=== PATIENT | female | born 1955 | race Caucasian/White ===

== ENCOUNTER 2024-05-04 23:11 | Inpatient (IN) | payer MEDICARE, MEDICAID ==
[~2024-05-04] VITALS: Ht 157.5 cm; Wt 47.7 kg
[2024-05-04] MEDS ORDERED: LEVO150T8 PO (23:27)
[2024-05-04] MEDS ORDERED: LISI40TA13 PO (23:27)
[2024-05-04] MEDS ORDERED: CYAN100T47 PO (23:27)
[2024-05-04] MEDS ORDERED: PANT-47 PO (23:27)
[2024-05-04] MEDS ORDERED: KEN0.1O TOP (23:27)
[2024-05-04] MEDS ORDERED: ONDA-243 PO (23:27)
[2024-05-04] MEDS ORDERED: METO50TA16 PO (23:27)
[2024-05-04] MEDS ORDERED: TRAZ-251 PO (23:27)
[2024-05-04] MEDS ORDERED: THIA50TA10 PO (23:27)
[2024-05-04] MEDS ORDERED: MECL-231 PO (23:27)
[2024-05-05 00:46] LABS: BASOPHILS % (AUTO) 1.4 % (0-1); EOSINOPHILS # (AUTO) 0.1 X10'3 (0-0.9); EOSINOPHILS % (AUTO) 2.1 % (0-6); HEMATOCRIT 24.7 % (35.0-45.0); HEMOGLOBIN 8.1 g/dl (12.0-16.0); LYMPHOCYTES # (AUTO) 0.9 X10'3 (1.1-4.8); LYMPHOCYTES % (AUTO) 31.1 % (21-51); MEAN CORPUSCULAR HEMOGLOBIN 34.3 PG (27.0-31.0); MEAN CORPUSCULAR VOLUME 104.1 FL (78-98); MEAN PLATELET VOLUME 7.2 FL (7.4-10.4); MONOCYTES # (AUTO) 0.2 X10'3 (0-0.9); MONOCYTES % (AUTO) 6.2 % (2-12); NEUTROPHILS # (AUTO) 1.7 X10'3 (1.8-7.7); NEUTROPHILS % (AUTO) 59.2 % (42-75); PLATELET COUNT 156 X10'3 (140-440); RED BLOOD COUNT 2.37 X10'6 (4.20-5.60); RED CELL DISTRIBUTION WIDTH 17.2 % (11.5-14.5); WHITE BLOOD COUNT 2.9 X10'3 (4.5-11.0)
[2024-05-05] MEDS: normal saline 1000ml 1,000 ML IV ONE (00:48)
[2024-05-05 00:49] LABS: ALBUMIN 3.4 G/DL (3.4-5.0); ANION GAP 22 (8-16); BLOOD UREA NITROGEN 21 MG/DL (7-18); BUN/CREATININE RATIO 16.3 (10.0-20.0); CALCIUM 8.6 MG/DL (8.5-10.1); CHLORIDE 92 MMOL/L (99-107); CREATININE 1.29 MG/DL (0.40-0.90); GLUCOSE 92 MG/DL (70-104); LIPASE 188 U/L (16-77); SODIUM 131 MMOL/L (135-145); TOTAL CARBON DIOXIDE 16.7 MMOL/L (24-32); eCRCL 31 ML/MIN; eGFR 41 ML/MIN
[2024-05-05 00:59] LABS: ABG BASE EXCESS -7.9 mmol/L (-2.0-2.0); ABG HCO3 14.9 mmol/L (22.0-26.0); ABG OXYGEN SATURATION 95.3 % (92-98.5); ABG PCO2 (T) 21.3 mmHg (32.0-45.0); ABG PH (T) 7.462 (7.350-7.450); ABG PO2 (T) 82.1 mmHg (75.0-100.0); ALLEN'S TEST POSITIVE; FCOHb 0.3 % (0.5-1.5); FHHb 4.7 % (0.0-5.0); FMetHb 0.5 % (0.0-1.5); FO2Hb 94.5 % (94-97); MODE ROOM AIR; PATIENT TEMPERATURE 36.9; TOTAL HEMOGLOBIN 7.6 G/dl (12.0-16.0)
[2024-05-05 01:15] LABS: ANISOCYTOSIS 1+; FREE T4 (FREE THYROXINE) 0.37 NG/DL (0.73-1.40); PLATELET ESTIMATE NORMAL; TOTAL CELLS COUNTED 100
[2024-05-05 01:16] LABS: HYPOCHROMASIA 1+
[2024-05-05 01:17] LABS: TARGET CELLS FEW; TEAR DROP CELLS FEW
[2024-05-05 01:18] LABS: THYROID STIMULATING HORMONE 55.99 ulU/ml (0.34-4.50)
[2024-05-05] MEDS ORDERED: magnesium sulf-water 4G/100mL 100 ML IV PRN (02:20)
[2024-05-05] MEDS ORDERED: potassium Cl 20 mEq SR tablet PO PRN (02:20)
[2024-05-05] MEDS ORDERED: magnesium sulf-water 2g/50mL 50 ML IV PRN (02:20)
[2024-05-05] MEDS ORDERED: potassium Cl 40MEQ/1/2NS 520ml 520 ML IV PRN (02:20)
[2024-05-05] MEDS ORDERED: magnesium hydroxide 30ml (MOM) UD suspension PO PRN (02:20)
[2024-05-05] MEDS ORDERED: mag hydrox/Alum hydrox/simeth 30ml oral suspension PO PRN (02:20)
[2024-05-05 02:42] LABS: HEMOGLOBIN A1C 4.4 % (4.5-6.2)
[2024-05-05 03:03] LABS: BILIRUBIN,URINE NEGATIVE (Neg); CLARITY,URINE SLIGHTLY CLOUDY (Clear); COLOR,URINE YELLOW (Yellow); GLUCOSE, URINE NEGATIVE (Neg); KETONES,URINE 15 mg/dl (Neg); LEUKOCYTE ESTERASE ,URINE SMALL (Neg); NITRITES, URINE POSITIVE (Neg); OCCULT BLOOD,URINE TRACE-INTACT (Neg); PROTEIN,URINE 30 mg/dl (Neg); UROBILINOGEN,URINE 0.2 E.U/dL (0.2-1.0)
[2024-05-05 03:08] LABS: UA COLLECTION TYPE FOLEY CATH
[2024-05-05 03:10] LABS: BACTERIA,URINE FEW /HPF (Neg); HYALINE CASTS 0-3 /LPF (NEGATIVE); SQUAMOUS EPITHELIAL CELL,UR FEW /LPF (FEW)
[2024-05-05 03:11] LABS: WBC CLUMPS,URINE FEW /HPF (NEGATIVE)
[2024-05-05 03:17] LABS: URINE AMPHETAMINE SCREEN NEGATIVE (Neg); URINE BARBITUATE SCREEN NEGATIVE (Neg); URINE BENZODIAZEPINES SCREEN NEGATIVE (Neg); URINE CANNABINOID SCREEN NEGATIVE (Neg); URINE COCAINE SCREEN NEGATIVE (Neg); URINE METHADONE SCREEN NEGATIVE (Neg); URINE OPIATE SCREEN NEGATIVE (Neg); URINE PHENCYCLIDINE SCREEN NEGATIVE (Neg)
[2024-05-05 03:50] LABS: PRO BRAIN NATRIURETIC PEPTIDE 376 PG/ML (0-125)
[2024-05-05] MEDS: normal saline 1000ml 1,000 ML IV SCH (04:13)
[2024-05-05 07:23] LABS: CHOL/HDL RATIO 1.9 (0.00-4.99); CHOLESTEROL 186 MG/DL (0-200); HDL CHOLESTEROL 96 MG/DL (35-60); LDL CHOLESTEROL 24 MG/DL (50-100); POTASSIUM 4.2 MMOL/L (3.5-5.1); TRIGLYCERIDES 83 MG/DL (20-135)
[2024-05-05] MEDS: K and/or MAG REPLACEMENT MC SCH (07:32)
[2024-05-05] MEDS: heparin, porcine 5000 units/ml vial SQ SCH (08:00)
[2024-05-05] MEDS: docusate sod 100mg capsule PO SCH (09:05)
[2024-05-05] MEDS: CefTRIAXone/D5W-Rocephin 1gm 50 ML IV SCH (09:05)
[2024-05-05] MEDS: pneumococcal 23-VAL P-sac vacc 25 mcg/0.5ml vial IMVAC ONE (12:28)
[2024-05-05 14:30] VITALS: BP 106/74; PULSE 81; RESP 12; TEMP 97.8; O2SAT 95
[2024-05-05 15:00] VITALS: RESP 12; O2SAT 95
[2024-05-05 18:00] VITALS: BP 113/78; PULSE 87; RESP 21; TEMP 98.3; O2SAT 95
[2024-05-05 20:00] VITALS: RESP 12; O2SAT 95
[2024-05-05] MEDS: ondansetron/PF 4mg/2ml inj IV PRN (20:45)
[2024-05-05] MEDS: traZODone 50mg tablet PO SCH (20:46)
[2024-05-05 22:00] VITALS: BP 107/65; PULSE 88; RESP 17; TEMP 97.2; O2SAT 96
[2024-05-06] VITALS (10 sets, daily range): BP systolic 91–125; BP diastolic 59–84; PULSE 73–97; RESP 12–17; TEMP 97.3–98.6; O2SAT 93–99
[2024-05-06 05:51] LABS: BASOPHILS % (AUTO) 1.3 % (0-1); EOSINOPHILS # (AUTO) 0.1 X10'3 (0-0.9); EOSINOPHILS % (AUTO) 2.5 % (0-6); LYMPHOCYTES # (AUTO) 0.7 X10'3 (1.1-4.8); LYMPHOCYTES % (AUTO) 27.5 % (21-51); MEAN CORPUSCULAR HEMOGLOBIN 35.1 PG (27.0-31.0); MEAN CORPUSCULAR HGB CONC 33.8 g/dL (33.0-36.5); MEAN CORPUSCULAR VOLUME 103.9 FL (78-98); MEAN PLATELET VOLUME 6.6 FL (7.4-10.4); MONOCYTES # (AUTO) 0.2 X10'3 (0-0.9); MONOCYTES % (AUTO) 7.8 % (2-12); NEUTROPHILS # (AUTO) 1.6 X10'3 (1.8-7.7); NEUTROPHILS % (AUTO) 60.9 % (42-75); PLATELET COUNT 121 X10'3 (140-440); RED BLOOD COUNT 1.83 X10'6 (4.20-5.60); RED CELL DISTRIBUTION WIDTH 17.3 % (11.5-14.5); WHITE BLOOD COUNT 2.7 X10'3 (4.5-11.0)
[2024-05-06 05:55] LABS: ALANINE AMINOTRANSFERASE 33 U/L (12-78); ALBUMIN 2.5 G/DL (3.4-5.0); ALBUMIN/GLOBULIN RATIO 1.2 (1.1-1.5); ALKALINE PHOSPHATASE 97 IU/L (46-116); ANION GAP 4 (8-16); ASPARTATE AMINO TRANSFERASE 72 U/L (10-37); BILIRUBIN,TOTAL 0.5 MG/DL (0.1-1.0); BLOOD UREA NITROGEN 10 MG/DL (7-18); BUN/CREATININE RATIO 9.7 (10.0-20.0); CALCIUM 7.6 MG/DL (8.5-10.1); CHLORIDE 103 MMOL/L (99-107); CREATININE 1.03 MG/DL (0.40-0.90); GLUCOSE 102 MG/DL (70-104); LIPASE 56 U/L (16-77); MAGNESIUM 1.2 MG/DL (1.5-2.4); POTASSIUM 3.4 MMOL/L (3.5-5.1); SODIUM 131 MMOL/L (135-145); TOTAL CARBON DIOXIDE 23.6 MMOL/L (24-32); TOTAL PROTEIN 4.6 G/DL (6.4-8.2); eCRCL 38 ML/MIN; eGFR 53 ML/MIN
[2024-05-06 06:00] LABS: HEMOGLOBIN 6.4 g/dl (12.0-16.0)
[2024-05-06 06:44] LABS: ANISOCYTOSIS 1+; PLATELET ESTIMATE DECREASED; TOTAL CELLS COUNTED 100
[2024-05-06 06:46] LABS: HYPOCHROMASIA 1+
[2024-05-06] MEDS: magnesium sulf-water 2g/50mL 50 ML IV ONE (07:25)
[2024-05-06] MEDS: triamcinolone acet 0.1% cream 15gm TP SCH (08:00)
[2024-05-06 08:21] LABS: RED BLOOD COUNT 1.87 X10'6 (4.20-5.60); RETICULOCYTE % (AUTO) 1.4 % (0.5-1.5)
[2024-05-06 08:42] LABS: FERRITIN 242 NG/ML (8-252)
[2024-05-06 08:48] LABS: IRON 94 UG/DL (49-151)
[2024-05-06 08:56] LABS: % IRON SATURATION 78 % (11-46); TOTAL IRON BINDING CAPACITY 121 UG/DL (259-388)
[2024-05-06] MEDS: magnesium Cl slow-release 64mg tablet PO PRN (09:43)
[2024-05-06] MEDS: pantoprazole 40mg Tablet.DR PO SCH (09:44)
[2024-05-06] MEDS: meclizine 12.5mg tablet PO SCH (09:44)
[2024-05-06] MEDS: folic acid 1mg tablet PO SCH (09:45)
[2024-05-06] MEDS: levoTHYROXINE 75mcg tablet PO SCH (09:45)
[2024-05-06] MEDS: cyanocobalamin 1,000 mcg/ml inj IM SCH (12:25)
[2024-05-06] MEDS ORDERED: thiamine 100mg tablet PO SCH (13:44)
[2024-05-06 19:01] LABS: HEMATOCRIT 24.3 % (35.0-45.0); HEMOGLOBIN 8.2 g/dl (12.0-16.0); MEAN CORPUSCULAR HEMOGLOBIN 32.7 PG (27.0-31.0); MEAN CORPUSCULAR HGB CONC 33.9 g/dL (33.0-36.5); MEAN CORPUSCULAR VOLUME 96.6 FL (78-98); MEAN PLATELET VOLUME 6.4 FL (7.4-10.4); PLATELET COUNT 102 X10'3 (140-440); RED BLOOD COUNT 2.52 X10'6 (4.20-5.60); RED CELL DISTRIBUTION WIDTH 20.4 % (11.5-14.5); WHITE BLOOD COUNT 2.9 X10'3 (4.5-11.0)
[2024-05-07] VITALS (7 sets, daily range): BP systolic 112–135; BP diastolic 79–97; PULSE 73–93; RESP 15–18; TEMP 97–99.1; O2SAT 86–96
[2024-05-07] MEDS: potassium Cl 20 mEq SR tablet PO PRN (02:31)
[2024-05-07 08:34] LABS: BASOPHILS % (AUTO) 1.4 % (0-1); EOSINOPHILS # (AUTO) 0.1 X10'3 (0-0.9); EOSINOPHILS % (AUTO) 2.6 % (0-6); HEMATOCRIT 27.1 % (35.0-45.0); HEMOGLOBIN 9.1 g/dl (12.0-16.0); LYMPHOCYTES # (AUTO) 0.6 X10'3 (1.1-4.8); LYMPHOCYTES % (AUTO) 22.6 % (21-51); MEAN CORPUSCULAR HEMOGLOBIN 32.7 PG (27.0-31.0); MEAN CORPUSCULAR HGB CONC 33.4 g/dL (33.0-36.5); MEAN CORPUSCULAR VOLUME 97.8 FL (78-98); MONOCYTES # (AUTO) 0.3 X10'3 (0-0.9); MONOCYTES % (AUTO) 9.4 % (2-12); NEUTROPHILS # (AUTO) 1.7 X10'3 (1.8-7.7); PLATELET COUNT 113 X10'3 (140-440); RED BLOOD COUNT 2.78 X10'6 (4.20-5.60); RED CELL DISTRIBUTION WIDTH 21.3 % (11.5-14.5); WHITE BLOOD COUNT 2.7 X10'3 (4.5-11.0)
[2024-05-07 08:57] LABS: ALANINE AMINOTRANSFERASE 40 U/L (12-78); ALBUMIN 2.8 G/DL (3.4-5.0); ALBUMIN/GLOBULIN RATIO 1.2 (1.1-1.5); ALKALINE PHOSPHATASE 103 IU/L (46-116); ANION GAP 8 (8-16); ASPARTATE AMINO TRANSFERASE 76 U/L (10-37); BILIRUBIN,TOTAL 0.7 MG/DL (0.1-1.0); BLOOD UREA NITROGEN 7 MG/DL (7-18); BUN/CREATININE RATIO 7.2 (10.0-20.0); CALCIUM 7.7 MG/DL (8.5-10.1); CHLORIDE 102 MMOL/L (99-107); CREATININE 0.97 MG/DL (0.40-0.90); GLUCOSE 84 MG/DL (70-104); MAGNESIUM 1.1 MG/DL (1.5-2.4); POTASSIUM 3.8 MMOL/L (3.5-5.1); SODIUM 132 MMOL/L (135-145); TOTAL CARBON DIOXIDE 22.4 MMOL/L (24-32); TOTAL PROTEIN 5.1 G/DL (6.4-8.2); eCRCL 41 ML/MIN; eGFR 57 ML/MIN
[2024-05-07 09:02] LABS: ANISOCYTOSIS 3+; PLATELET ESTIMATE DECREASED; TOTAL CELLS COUNTED 100
[2024-05-07] MEDS: thiamine 100mg tablet PO SCH (09:36)
[2024-05-07] MEDS: levoTHYROXINE 100mcg tablet PO SCH (09:36)
[2024-05-07 14:37] LABS: OCCULT BLOOD STOOL NEGATIVE (Neg)
[2024-05-08] VITALS (7 sets, daily range): BP systolic 117–157; BP diastolic 80–97; PULSE 82–91; RESP 14–20; TEMP 97.9–98.3; O2SAT 93–96
[2024-05-08 06:06] LABS: BASOPHILS # (AUTO) 0.1 X10'3 (0-0.2); EOSINOPHILS # (AUTO) 0.1 X10'3 (0-0.9); EOSINOPHILS % (AUTO) 4.7 % (0-6); HEMATOCRIT 25.4 % (35.0-45.0); HEMOGLOBIN 8.5 g/dl (12.0-16.0); LYMPHOCYTES # (AUTO) 0.7 X10'3 (1.1-4.8); LYMPHOCYTES % (AUTO) 25.2 % (21-51); MEAN CORPUSCULAR HEMOGLOBIN 32.7 PG (27.0-31.0); MEAN CORPUSCULAR HGB CONC 33.6 g/dL (33.0-36.5); MEAN CORPUSCULAR VOLUME 97.5 FL (78-98); MEAN PLATELET VOLUME 6.5 FL (7.4-10.4); MONOCYTES # (AUTO) 0.3 X10'3 (0-0.9); MONOCYTES % (AUTO) 11.4 % (2-12); NEUTROPHILS # (AUTO) 1.6 X10'3 (1.8-7.7); NEUTROPHILS % (AUTO) 56.7 % (42-75); PLATELET COUNT 112 X10'3 (140-440); RED BLOOD COUNT 2.61 X10'6 (4.20-5.60); RED CELL DISTRIBUTION WIDTH 20.9 % (11.5-14.5); WHITE BLOOD COUNT 2.8 X10'3 (4.5-11.0)
[2024-05-08 06:11] LABS: ALANINE AMINOTRANSFERASE 39 U/L (12-78); ALBUMIN 2.4 G/DL (3.4-5.0); ALBUMIN/GLOBULIN RATIO 1.1 (1.1-1.5); ALKALINE PHOSPHATASE 90 IU/L (46-116); ANION GAP 7 (8-16); ASPARTATE AMINO TRANSFERASE 98 U/L (10-37); BILIRUBIN,TOTAL 0.5 MG/DL (0.1-1.0); BLOOD UREA NITROGEN 4 MG/DL (7-18); BUN/CREATININE RATIO 5.2 (10.0-20.0); CALCIUM 7.5 MG/DL (8.5-10.1); CHLORIDE 105 MMOL/L (99-107); CREATININE 0.77 MG/DL (0.40-0.90); GLUCOSE 81 MG/DL (70-104); MAGNESIUM 1.2 MG/DL (1.5-2.4); POTASSIUM 3.2 MMOL/L (3.5-5.1); SODIUM 133 MMOL/L (135-145); TOTAL CARBON DIOXIDE 21.4 MMOL/L (24-32); TOTAL PROTEIN 4.6 G/DL (6.4-8.2); eCRCL 51 ML/MIN; eGFR 74 ML/MIN
[2024-05-08 07:25] LABS: TOTAL CELLS COUNTED 100
[2024-05-08 07:27] LABS: ANISOCYTOSIS 3+; PLATELET ESTIMATE DECREASED
[2024-05-08] MEDS: potassium Cl 20 mEq SR tablet PO PRN (07:39)
[2024-05-08] MEDS: magnesium Cl slow-release 64mg tablet PO PRN (07:39)
[2024-05-08] MEDS: ferrous sulfate 325mg tablet PO SCH (07:40)
[2024-05-08 11:50] LABS: C DIFF SPECIMEN=DIARRHEA? ACCEPTABLE; C DIFFICILE TOXINS A&B NEGATIVE (Neg)
[2024-05-08 11:51] LABS: C DIFF ANTIGEN SEE COMMENTS (NEGATIVE)
[2024-05-08 13:52] LABS: TRANSFERRIN 97 mg/dL (192-364)
[2024-05-08] MEDS: loperamide 2mg capsule PO ONE (16:24)
[2024-05-08] MEDS: acetaminophen 325mg tablet PO PRN (16:36)
[2024-05-08] MEDS: morphine 2 MG/ML inj. syringe IV PRN (20:10)
[2024-05-09] VITALS (7 sets, daily range): BP systolic 114–137; BP diastolic 83–102; PULSE 84–104; RESP 16–18; TEMP 97.8–98.5; O2SAT 95–98
[2024-05-09 06:24] LABS: BASOPHILS # (AUTO) 0.1 X10'3 (0-0.2); BASOPHILS % (AUTO) 2.2 % (0-1); EOSINOPHILS # (AUTO) 0.1 X10'3 (0-0.9); EOSINOPHILS % (AUTO) 4.1 % (0-6); HEMATOCRIT 26.8 % (35.0-45.0); LYMPHOCYTES # (AUTO) 0.9 X10'3 (1.1-4.8); LYMPHOCYTES % (AUTO) 27.4 % (21-51); MEAN CORPUSCULAR HEMOGLOBIN 32.5 PG (27.0-31.0); MEAN CORPUSCULAR HGB CONC 33.4 g/dL (33.0-36.5); MEAN CORPUSCULAR VOLUME 97.3 FL (78-98); MEAN PLATELET VOLUME 6.7 FL (7.4-10.4); MONOCYTES # (AUTO) 0.5 X10'3 (0-0.9); MONOCYTES % (AUTO) 15.7 % (2-12); NEUTROPHILS # (AUTO) 1.6 X10'3 (1.8-7.7); NEUTROPHILS % (AUTO) 50.6 % (42-75); PLATELET COUNT 124 X10'3 (140-440); RED BLOOD COUNT 2.76 X10'6 (4.20-5.60); RED CELL DISTRIBUTION WIDTH 20.6 % (11.5-14.5); WHITE BLOOD COUNT 3.2 X10'3 (4.5-11.0)
[2024-05-09 06:37] LABS: ALANINE AMINOTRANSFERASE 40 U/L (12-78); ALBUMIN 2.4 G/DL (3.4-5.0); ALKALINE PHOSPHATASE 93 IU/L (46-116); ANION GAP 6 (8-16); ASPARTATE AMINO TRANSFERASE 93 U/L (10-37); BILIRUBIN,TOTAL 0.4 MG/DL (0.1-1.0); BLOOD UREA NITROGEN 3 MG/DL (7-18); BUN/CREATININE RATIO 3.5 (10.0-20.0); CALCIUM 8.1 MG/DL (8.5-10.1); CHLORIDE 104 MMOL/L (99-107); CREATININE 0.86 MG/DL (0.40-0.90); GLUCOSE 96 MG/DL (70-104); MAGNESIUM 1.2 MG/DL (1.5-2.4); POTASSIUM 3.8 MMOL/L (3.5-5.1); SODIUM 132 MMOL/L (135-145); TOTAL PROTEIN 4.9 G/DL (6.4-8.2); eCRCL 46 ML/MIN; eGFR 65 ML/MIN
[2024-05-09 06:53] LABS: NUCLEATED RED BLOOD CELLS 2 /100WBC (0-0); TOTAL CELLS COUNTED 100
[2024-05-09 06:54] LABS: ANISOCYTOSIS 3+; HYPOCHROMASIA 1+; PLATELET ESTIMATE DECREASED; POIKILOCYTOSIS FEW; TARGET CELLS FEW
[2024-05-09] MEDS: morphine 2 MG/ML inj. syringe IV PRN (21:56)
[2024-05-10 07:16] LABS: ALANINE AMINOTRANSFERASE 38 U/L (12-78); ALBUMIN 2.5 G/DL (3.4-5.0); ALBUMIN/GLOBULIN RATIO 0.9 (1.1-1.5); ALKALINE PHOSPHATASE 97 IU/L (46-116); ANION GAP 12 (8-16); ASPARTATE AMINO TRANSFERASE 75 U/L (10-37); BILIRUBIN,TOTAL 0.5 MG/DL (0.1-1.0); BLOOD UREA NITROGEN 3 MG/DL (7-18); BUN/CREATININE RATIO 3.7 (10.0-20.0); CALCIUM 8.1 MG/DL (8.5-10.1); CHLORIDE 103 MMOL/L (99-107); CREATININE 0.81 MG/DL (0.40-0.90); GLUCOSE 96 MG/DL (70-104); POTASSIUM 3.5 MMOL/L (3.5-5.1); SODIUM 133 MMOL/L (135-145); TOTAL CARBON DIOXIDE 17.8 MMOL/L (24-32); TOTAL PROTEIN 5.3 G/DL (6.4-8.2); eCRCL 49 ML/MIN; eGFR 70 ML/MIN
[2024-05-10 07:29] VITALS: BP 138/96; PULSE 96; RESP 19; TEMP 98.4; O2SAT 91
[2024-05-10 11:00] VITALS: BP 126/93; PULSE 99; RESP 17; TEMP 98.2; O2SAT 97
[2024-05-10 11:52] LABS: HEMATOCRIT 26.4 % (37.7-47.9); MEAN CORPUSCULAR HGB CONC 34.2 % (32-36); MEAN CORPUSCULAR VOLUME 96.5 FL (81-97); PLATELET COUNT 152 X10'3 (130-400); RED BLOOD COUNT 2.74 X10'6 (3.60-4.90); RED CELL DISTRIBUTION WIDTH 20.3 % (11-16); WHITE BLOOD COUNT 3.8 X10'3 (4.5-11.0)
[2024-05-10 11:53] LABS: MM BASOPHILS % (MANUAL) 0 % (0-1); MM EOSINOPHILS % (MANUAL) 3 % (0-6); MM LYMPHOCYTES % (MANUAL) 14 % (21-51); MM MACROCYTOSIS 1+; MM MONOCYTES % (MANUAL) 10 % (2-12); MM NEUTROPHILS % (MANUAL) 72 % (42-75); MM PLATELET ESTIMATE DECREASED; MM POLYCHROMASIA 1+; MM RBC MORPHOLOGY PERF; MM TOTAL CELLS COUNTED 100
[2024-05-10 11:54] LABS: MM ANISOCYTOSIS 2+
[2024-05-10] MEDS: thiamine 100mg tablet PO ONE (12:03)
[2024-05-10] MEDS: lactose-reduced food (Ensure Enlive) - 237ml bottle PO SCH (13:00)
[2024-05-10 13:01] LABS: MAGNESIUM 1.1 MG/DL (1.5-2.4)
[2024-05-10 15:00] VITALS: BP 133/96; PULSE 102; RESP 18; TEMP 98.4; O2SAT 96
[2024-05-10 18:00] VITALS: BP 129/47; PULSE 101; RESP 20; TEMP 98.6; O2SAT 94
[2024-05-10] MEDS ORDERED: LORazepam 1 MG tablet PO PRN (18:10)
[2024-05-10] MEDS ORDERED: LORazepam 2 mg/ml vial IV PRN (18:10)
[2024-05-10] MEDS: magnesium sulf-water 2g/50mL 50 ML IV ONE (19:53)
[2024-05-10 20:00] VITALS: RESP 16; O2SAT 94
[2024-05-11 02:00] VITALS: BP 132/93; PULSE 104; RESP 18; TEMP 98.2; O2SAT 92
[2024-05-11 05:57] LABS: PHOSPHORUS 2.4 MG/DL (2.3-4.5)
[2024-05-11 07:00] VITALS: BP 119/81; PULSE 97; RESP 11; TEMP 98; O2SAT 91
[2024-05-11 09:39] LABS: BASOPHILS # (AUTO) 0.1 X10'3 (0-0.2); BASOPHILS % (AUTO) 1.5 % (0-1); EOSINOPHILS # (AUTO) 0.1 X10'3 (0-0.9); EOSINOPHILS % (AUTO) 2.3 % (0-6); HEMATOCRIT 26.4 % (35.0-45.0); HEMOGLOBIN 8.7 g/dl (12.0-16.0); LYMPHOCYTES # (AUTO) 0.7 X10'3 (1.1-4.8); LYMPHOCYTES % (AUTO) 17.3 % (21-51); MEAN CORPUSCULAR HEMOGLOBIN 32.6 PG (27.0-31.0); MEAN CORPUSCULAR VOLUME 98.7 FL (78-98); MEAN PLATELET VOLUME 7.4 FL (7.4-10.4); MONOCYTES # (AUTO) 0.7 X10'3 (0-0.9); NEUTROPHILS # (AUTO) 2.5 X10'3 (1.8-7.7); NEUTROPHILS % (AUTO) 61.9 % (42-75); PLATELET COUNT 169 X10'3 (140-440); RED BLOOD COUNT 2.67 X10'6 (4.20-5.60); RED CELL DISTRIBUTION WIDTH 21.1 % (11.5-14.5); WHITE BLOOD COUNT 4.1 X10'3 (4.5-11.0)
[2024-05-11 09:52] LABS: ALANINE AMINOTRANSFERASE 38 U/L (12-78); ALBUMIN 2.7 G/DL (3.4-5.0); ALKALINE PHOSPHATASE 105 IU/L (46-116); ANION GAP 11 (8-16); ASPARTATE AMINO TRANSFERASE 64 U/L (10-37); BILIRUBIN,TOTAL 0.4 MG/DL (0.1-1.0); CALCIUM 8.2 MG/DL (8.5-10.1); CHLORIDE 102 MMOL/L (99-107); CREATININE 0.84 MG/DL (0.40-0.90); GLUCOSE 78 MG/DL (70-104); MAGNESIUM 1.4 MG/DL (1.5-2.4); POTASSIUM 3.5 MMOL/L (3.5-5.1); SODIUM 133 MMOL/L (135-145); TOTAL CARBON DIOXIDE 20.5 MMOL/L (24-32); TOTAL PROTEIN 5.4 G/DL (6.4-8.2); eCRCL 47 ML/MIN; eGFR 67 ML/MIN
[2024-05-11 10:01] LABS: TOTAL CELLS COUNTED 100
[2024-05-11 10:01] LABS: BLOOD UREA NITROGEN 3 MG/DL (7-18); BUN/CREATININE RATIO 3.6 (10.0-20.0)
[2024-05-11 10:02] LABS: ANISOCYTOSIS 3+; PLATELET ESTIMATE DECREASED
[2024-05-11 10:03] LABS: BURR CELLS FEW; POLYCHROMASIA FEW; TARGET CELLS FEW
[2024-05-11 10:04] LABS: TEAR DROP CELLS FEW
[2024-05-11 11:00] VITALS: BP 128/91; PULSE 105; RESP 17; TEMP 98.3; O2SAT 95
[2024-05-11 15:00] VITALS: BP 135/101; PULSE 100; RESP 26; TEMP 99.2; O2SAT 97
[2024-05-11 21:49] VITALS: BP 130/93; PULSE 101; RESP 22; TEMP 99.6; O2SAT 97
[2024-05-12] VITALS: BP 129/78; PULSE 98; RESP 14; TEMP 98; O2SAT 97
[2024-05-12 06:00] VITALS: BP 106/75; PULSE 83; RESP 12; TEMP 96.9; O2SAT 92
== END 2024-05-12 09:40 | DRG 438 ==
LOC: ER 23:12 → ED HOLD 05-05 02:20 → PCU 3S 05-05 14:20 → SUR 3N 05-11 23:45
PROVIDERS: ADMIT Surgery; ATTEND Family Medicine
PROC: 30233N1 Transfusion of Nonautologous Red Blood Cells into Peripheral Vein, Percutaneous Approach (ICD-10-PCS; principal; 2024-05-06)
DX: K85.20 Alcohol induced acute pancreatitis without necrosis or infection (principal); N17.0 Acute kidney failure with tubular necrosis; N10 Acute pyelonephritis; D61.818 Other pancytopenia; E87.20 Acidosis, unspecified; E87.3 Alkalosis; E87.1 Hypo-osmolality and hyponatremia; E87.4 Mixed disorder of acid-base balance; E44.1 Mild protein-calorie malnutrition; Z68.1 Body mass index [BMI] 19.9 or less, adult; I10 Essential (primary) hypertension; R73.03 Prediabetes; E03.9 Hypothyroidism, unspecified; F17.210 Nicotine dependence, cigarettes, uncomplicated; M54.9 Dorsalgia, unspecified; D41.4 Neoplasm of uncertain behavior of bladder; K76.0 Fatty (change of) liver, not elsewhere classified; D53.9 Nutritional anemia, unspecified; E87.6 Hypokalemia; F10.20 Alcohol dependence, uncomplicated; Y90.9 Presence of alcohol in blood, level not specified; E83.42 Hypomagnesemia
CPT/HCPCS: 36415; 36430; 36600; 71045; 74176; 76700; 80048; 80053; 80061; 80305; 81001; 82272; 82607; 82728; 82803; 83036; 83540; 83550; 83605; 83690; 83735; 83880; 84100; 84132; 84145; 84439; 84443; 84466; 85007; 85018; 85025; 85027; 85045; 86885; 86900; 86901; 86920; 87040; 87081; 87088; 87324; 87449; 90732; 93005; 96360; 97110; 97116; 97161; 97530; 97535; 99285; A5200; A6213; A6250; A6258; G0378; J0696; J1644; J2270; J2405; J3420; J7030; J7040; J8597; P9016